=== PATIENT | male | born 1950 | race Caucasian/White ===

== ENCOUNTER → 2021-01-25 | Day surgery (SDC) | payer MEDICARE, OTHER ==
[~2021-01-25] MED LIST: ALLOPURINOL300 MG PO; ASPIRIN EC81 MG PO; B-COMPLEX WIT400 MCG PO; B12 ACTIVE1000 MCG PO; BENADRYL25 MG PO; CALCIUM CITRAT1 EAC4 PO; FENOFIBRATE134 MG PO; FOLIC ACID0.4 MG PO; HYDREA500 MG PO; LIPITOR80 MG PO; MEN'S ONE DAIL1 EACH PO; METFORMIN HCL500 MG PO; NITROQUIK SL0.4 MG SL; NORCO 5-325 TA1 EACH PO; ONDANSETRON ODT8 MG PO; PLAVIX75 MG PO; PRINIVIL10 MG PO; PROTONIX40 MG PO; SPRYCEL100 MG PO; TOPROL XL25 MG PO; TRETINOIN10 MG PO; VIT D3 PO; ZYRTEC10 M3 PO; [UNRECOGNIZED DRUG - OTHER] PO; [UNRECOGNIZED DRUG - REMARK] PO
[2021-01-25 08:41] LABS: HCT 41.5 % (42.0-52.0); HGB 13.6 g/dl (13.2-18.0); MCH 30.9 pg (25.0-31.0); MCHC 32.8 g/dL (32.0-36.0); MCV 94.3 fL (78.0-100.0); MPV 9.3 fL (6.0-9.5); RBC 4.4 M/uL (4.70-6.00); RDW 16.6 % (11.5-14.0); WBC 4.4 K/uL (4.0-10.5)
[2021-01-25 08:59] LABS: ALBUMIN 4.6 g/dL (3.4-5.0); BILIRUBIN - TOTAL 0.8 mg/dL (0.2-1.0); BUN/CREAT RATIO (CALC) 13.8 RATIO; CREATININE 0.8 mg/dL (0.67-1.17); GLOBULIN (CALCULATION) 3.1 g/dL; POTASSIUM 4.4 mmol/L (3.5-5.1); TOTAL PROTEIN 7.7 g/dL (6.4-8.2)
== END | disposition home or self-care (01) ==
LOC: FAS 07:50
PROVIDERS: Surgery
DX: K29.70 Gastritis, unspecified, without bleeding (principal); K31.89 Other diseases of stomach and duodenum; K21.9 Gastro-esophageal reflux disease without esophagitis; I25.10 Atherosclerotic heart disease of native coronary artery without angina pectoris; I10 Essential (primary) hypertension; G47.30 Sleep apnea, unspecified; M19.90 Unspecified osteoarthritis, unspecified site; M06.9 Rheumatoid arthritis, unspecified; N40.0 Benign prostatic hyperplasia without lower urinary tract symptoms; E78.70 Disorder of bile acid and cholesterol metabolism, unspecified; E11.9 Type 2 diabetes mellitus without complications; E78.00 Pure hypercholesterolemia, unspecified; Z95.5 Presence of coronary angioplasty implant and graft; Z20.822 Contact with and (suspected) exposure to COVID-19
CPT/HCPCS: 36415; 76705; 80053; 88305; J2250; J2704; J7120

== ENCOUNTER → 2021-02-11 | Day surgery (SDC) | payer MEDICARE, OTHER ==
[~2021-02-11] MED LIST changes: +MAG-OXIDE 400M400 MG PO
[2021-02-11 09:46] LABS: HCT 38.8 % (42.0-52.0); HGB 12.9 g/dl (13.2-18.0); MCH 31.9 pg (25.0-31.0); MCHC 33.2 g/dL (32.0-36.0); MCV 95.8 fL (78.0-100.0); RBC 4.05 M/uL (4.70-6.00); WBC 3.8 K/uL (4.0-10.5)
[2021-02-11 10:01] LABS: ALBUMIN 4.4 g/dL (3.4-5.0); BILIRUBIN - TOTAL 0.5 mg/dL (0.2-1.0); CREATININE 0.83 mg/dL (0.67-1.17); GLOBULIN (CALCULATION) 3.2 g/dL; POTASSIUM 3.9 mmol/L (3.5-5.1); TOTAL PROTEIN 7.6 g/dL (6.4-8.2)
[2021-02-11 10:19] LABS: INR 1.04 (0.9-1.2); PROTHROMBIN TIME 12.9 SECONDS (11.4-13.6); PTT 28.7 SECONDS (22.2-34.7)
== END | disposition home or self-care (01) ==
LOC: FAS 08:59
PROVIDERS: Surgery
DX: K80.10 Calculus of gallbladder with chronic cholecystitis without obstruction (principal); C92.10 Chronic myeloid leukemia, BCR/ABL-positive, not having achieved remission; K21.9 Gastro-esophageal reflux disease without esophagitis; E11.9 Type 2 diabetes mellitus without complications; N40.0 Benign prostatic hyperplasia without lower urinary tract symptoms; M06.9 Rheumatoid arthritis, unspecified; I10 Essential (primary) hypertension; I25.2 Old myocardial infarction; E78.5 Hyperlipidemia, unspecified; E78.00 Pure hypercholesterolemia, unspecified; I25.10 Atherosclerotic heart disease of native coronary artery without angina pectoris; G47.30 Sleep apnea, unspecified; Z79.84 Long term (current) use of oral hypoglycemic drugs; Z79.82 Long term (current) use of aspirin; Z79.899 Other long term (current) drug therapy; Z87.891 Personal history of nicotine dependence; Z88.6 Allergy status to analgesic agent; Z95.5 Presence of coronary angioplasty implant and graft
CPT/HCPCS: 36415; 74300; 80053; 85610; 85730; 93005; C1758; J1170; J2250; J2270; J2405; J2704; J2710; J3010; J7120; Q9967

== ENCOUNTER → 2021-07-30 | Day surgery (SDC) | payer MEDICARE, OTHER ==
[~2021-07-30] VITALS: Ht 167.6 cm; Wt 68.1 kg
[2021-07-30 11:26] LABS: BASOPHIL 0 % (0-2); EOSINOPHIL 0.2 % (0-7); HCT 34.9 % (42.0-52.0); HGB 11.5 g/dl (13.2-18.0); LYMPHOCYTE 19.5 % (15-48); MCH 30.8 pg (25.0-31.0); MCV 93.6 fL (78.0-100.0); MONOCYTE 8.9 % (0-12); MPV 8.8 fL (6.0-9.5); NEUTROPHIL 71.2 % (41-80); NRBC 0; PLT 165 K/uL (150-400); RBC 3.73 M/uL (4.70-6.00); WBC 4.8 K/uL (4.0-10.5)
[2021-07-30 11:46] LABS: BILIRUBIN - TOTAL 0.5 mg/dL (0.2-1.0); CREATININE 0.8 mg/dL (0.67-1.17); GLOBULIN (CALCULATION) 4.1 g/dL; POTASSIUM 3.8 mmol/L (3.5-5.1); TOTAL PROTEIN 7.1 g/dL (6.4-8.2)
[2021-07-30 17:30] LABS: RBC (FLUID) 3000 RBC/uL; WBC (FLUID) 4216 WBC/uL
[2021-07-30 17:37] LABS: CLARITY (FLUID) CLOUDY; COLOR (FLUID) YELLOW
== END | disposition home or self-care (01) ==
LOC: FAS 08:41
PROVIDERS: Surgery
DX: J90 Pleural effusion, not elsewhere classified (principal); R10.13 Epigastric pain; C95.90 Leukemia, unspecified not having achieved remission; Z88.6 Allergy status to analgesic agent
CPT/HCPCS: 36415; 71045; 80053; 83615; 85025; 87070; 89051

== ENCOUNTER → 2021-08-12 | Day surgery (SDC) | payer MEDICARE, OTHER ==
[~2021-08-12] VITALS: Ht 167.6 cm; Wt 68.1 kg
== END | disposition home or self-care (01) ==
LOC: FAS 07:45
DX: J90 Pleural effusion, not elsewhere classified (principal); I25.2 Old myocardial infarction; E11.9 Type 2 diabetes mellitus without complications; Z88.6 Allergy status to analgesic agent; Z79.84 Long term (current) use of oral hypoglycemic drugs; Z79.82 Long term (current) use of aspirin; G89.29 Other chronic pain
CPT/HCPCS: 71045

== ENCOUNTER 2022-01-25 00:39 | Emergency (ER) | payer MEDICARE, OTHER ==
[2022-01-25 01:57] LABS: BASOPHIL 0.3 % (0-2); HCT 37.5 % (42.0-52.0); HGB 13.3 g/dl (13.2-18.0); LYMPHOCYTE 24.8 % (15-48); MCH 30.1 pg (25.0-31.0); MCHC 35.5 g/dL (32.0-36.0); MCV 84.8 fL (78.0-100.0); MONOCYTE 7.3 % (0-12); MPV 9.6 fL (6.0-9.5); NEUTROPHIL 64.8 % (41-80); NRBC 0; PLT 191 K/uL (150-400); RBC 4.42 M/uL (4.70-6.00); RDW 14.7 % (11.5-14.0); WBC 7.1 K/uL (4.0-10.5)
[2022-01-25 02:13] LABS: ALBUMIN 4.2 g/dL (3.4-5.0); BUN/CREAT RATIO (CALC) 16.4 RATIO; CREATININE 0.67 mg/dL (0.67-1.17); GLOBULIN (CALCULATION) 3.2 g/dL; POTASSIUM 4.3 mmol/L (3.5-5.1); TOTAL PROTEIN 7.4 g/dL (6.4-8.2)
== END 2022-01-25 04:49 | disposition home or self-care (01) ==
LOC: FER 00:39
PROVIDERS: Emergency Medicine
DX: R10.13 Epigastric pain (principal); K59.00 Constipation, unspecified; Z88.6 Allergy status to analgesic agent
CPT/HCPCS: 36415; 80053; 84484; 85025; 93005; J7030

== ENCOUNTER → 2022-05-24 | Day surgery (SDC) | payer MEDICARE, OTHER ==
[~2022-05-24] VITALS: Ht 167.6 cm; Wt 64.0 kg
[~2022-05-24] MED LIST changes: +TASIGNA150 MG PO
[2022-05-24 09:05] LABS: HCT 37.1 % (42.0-52.0); HGB 12.6 g/dl (13.2-18.0); MCV 91.2 fL (78.0-100.0); MPV 9.6 fL (6.0-9.5); RBC 4.07 M/uL (4.70-6.00); RDW 14.5 % (11.5-14.0); WBC 5.6 K/uL (4.0-10.5)
[2022-05-24 11:11] LABS: ALBUMIN 3.6 g/dL (3.4-5.0); BILIRUBIN - TOTAL 0.6 mg/dL (0.2-1.0); CREATININE 0.74 mg/dL (0.67-1.17); GLOBULIN (CALCULATION) 3.2 g/dL; POTASSIUM 4.5 mmol/L (3.5-5.1); TOTAL PROTEIN 6.8 g/dL (6.4-8.2)
== END | disposition home or self-care (01) ==
LOC: FAS 07:50
PROVIDERS: Surgery
DX: K21.9 Gastro-esophageal reflux disease without esophagitis (principal); K29.70 Gastritis, unspecified, without bleeding; E11.9 Type 2 diabetes mellitus without complications; Z88.6 Allergy status to analgesic agent; Z79.82 Long term (current) use of aspirin; Z79.84 Long term (current) use of oral hypoglycemic drugs; Z79.899 Other long term (current) drug therapy
CPT/HCPCS: 36415; 80053; J2704; J7120